=== PATIENT | male | born 1960 | race Caucasian/White ===

== ENCOUNTER → 2023-03-26 07:20 | Outpatient (REF) | payer BC, SELFPAY | LOC: MRI 3T 07:20 | PROVIDERS: ATTENDING PHYSICIAN Specialist; FAMILY PHYSICIAN Family Medicine | DX: R97.20 Elevated prostate specific antigen [PSA] (principal) | CPT/HCPCS: 72197; A9575 ==

== ENCOUNTER 2023-04-23 06:11 | Day surgery (SDC) | payer BC, SELFPAY ==
[2023-04-09 09:18] LABS: Hematocrit 46.7 % (39.0-52.0); Hemoglobin 16.4 g/dL (13.0-18.0); Mean Corp Hgb Conc. 35.1 g/dL (33.0-37.0); Mean Corpuscular Hgb 31.2 pg (27.0-31.0); Mean Platelet Volume 9.7 fL (7.4-10.4); Platelet Count 264 10^3/uL (130-400); Red Blood Cell Count 5.25 10^6/uL (4.70-6.10); Red Cell Dist. Width 13.2 % (11.5-14.5); White Blood Cell Count 4.5 10^3/uL (4.8-10.8)
[2023-04-09 09:18] LABS: Urine Albumin Negative (Neg - Trace); Urine Bilirubin Negative (Negative); Urine Character Clear (Clear); Urine Color Yellow; Urine Glucose Negative (Negative); Urine Ketone Negative (Negative); Urine Leukocyte Negative (Negative); Urine Nitrite Negative (Negative); Urine Occult Blood 2+ (Negative); Urine Specific Gravity 1.025 (<1.030); Urine Urobilinogen Negative (Neg - 1+)
[2023-04-09 09:46] LABS: INR 0.98
[2023-04-09 09:47] LABS: APTT 26.9 Sec (23.4-35.0)
[2023-04-09 10:00] LABS: Blood Urea Nitrogen 24 mg/dl (9-20); Calcium 9.4 mg/dl (8.4-10.2); Carbon Dioxide 27 mmol/L (22-30); Chloride 104 mmol/L (98-107); Glucose 104 mg/dl (70-99); Potassium 4.4 mmol/L (3.5-5.1); Sodium 136 mmol/L (135-145); eGFR > 60.00
[2023-04-09 10:15] LABS: Urine Red Blood Cell 0-2 /HPF (0-2); Urine White Cell 0-2 /HPF (0-5)
[2023-04-09 10:42] LABS: Urine Bacteria Few (Negative)
[2023-04-09 11:02] VITALS: BMI 30.8
[2023-04-23 06:17] VITALS: BP 144/79
[2023-04-23] MEDS: NORMOSOL-R 1000 IV (06:28)
[2023-04-23 06:34] VITALS: BMI 30.8
[2023-04-23 08:05] VITALS: BP 101/62; BP_SYST 19
[2023-04-23 08:20] VITALS: BP 95/58
[2023-04-23 08:34] VITALS: BP 113/64
[2023-04-23 09:05] VITALS: BP 127/80
== END 2023-04-23 09:15 | disposition home or self-care (01) ==
LOC: SDS 06:11
PROVIDERS: ATTENDING PHYSICIAN Specialist; FAMILY PHYSICIAN Family Medicine
DX: C61 Malignant neoplasm of prostate (principal); R97.20 Elevated prostate specific antigen [PSA]; R93.89 Abnormal findings on diagnostic imaging of other specified body structures
CPT/HCPCS: 55700; 88305; 36415; 76998; 80048; 81003; 81015; 85027; 85610; 85730; 88344; 93005; J1580

== ENCOUNTER → 2023-06-15 06:31 | Day surgery (SDC) | payer BC, SELFPAY | LOC: GI 06:31 | PROVIDERS: ATTENDING PHYSICIAN Internal Medicine | DX: Z12.11 Encounter for screening for malignant neoplasm of colon (principal); K57.30 Diverticulosis of large intestine without perforation or abscess without bleeding; D12.2 Benign neoplasm of ascending colon; D12.3 Benign neoplasm of transverse colon; D12.5 Benign neoplasm of sigmoid colon; D12.8 Benign neoplasm of rectum; N42.9 Disorder of prostate, unspecified; Z86.010 Personal history of colon polyps | CPT/HCPCS: 45385; 45380; 88305 ==

== ENCOUNTER 2023-09-10 09:18 | Inpatient (IN) | payer BC, SELFPAY ==
[2023-09-04 06:41] VITALS: BMI 30.1
[2023-09-04 09:05] LABS: Hematocrit 46.3 % (39.0-52.0); Hemoglobin 16.5 g/dL (13.0-18.0); Mean Corp Hgb Conc. 35.6 g/dL (33.0-37.0); Mean Corpuscular Hgb 31.3 pg (27.0-31.0); Mean Corpuscular Volume 87.9 fL (80.0-94.0); Mean Platelet Volume 9.3 fL (7.4-10.4); Platelet Count 262 10^3/uL (130-400); Red Blood Cell Count 5.27 10^6/uL (4.70-6.10); Red Cell Dist. Width 12.8 % (11.5-14.5)
[2023-09-04 09:24] LABS: INR 1.03; PT 13.3 Sec (11.4-14.6)
[2023-09-04 09:25] LABS: APTT 26.8 Sec (23.4-35.0); Urine Albumin Negative (Neg - Trace); Urine Bilirubin Negative (Negative); Urine Character Clear (Clear); Urine Color Yellow; Urine Glucose Negative (Negative); Urine Ketone Negative (Negative); Urine Leukocyte Negative (Negative); Urine Nitrite Negative (Negative); Urine Occult Blood 3+ (Negative); Urine Urobilinogen Negative (Neg - 1+)
[2023-09-04 09:32] LABS: Blood Urea Nitrogen 26 mg/dl (9-20); Calcium 9.6 mg/dl (8.4-10.2); Carbon Dioxide 27 mmol/L (22-30); Chloride 103 mmol/L (98-107); Estimated Creatinine Clearance 89 ml/min; Glucose 96 mg/dl (70-99); Potassium 4.6 mmol/L (3.5-5.1); Sodium 138 mmol/L (135-145); eGFR > 60.00
[2023-09-04 09:40] LABS: Urine Bacteria Few (Negative); Urine Squamous Cell 0-2 /LPF (Few); Urine White Cell 0-2 /HPF (0-5)
[2023-09-10] VITALS (7 sets, daily range): BP systolic 109–151; BP diastolic 60–90; BMI 30.1
[2023-09-10] MEDS: NEBCIN 480 MG/100 ML ENEMA 1 BOTTLE RECTAL (09:27)
[2023-09-10] MEDS: NORMOSOL-R 1000 IV ×3 (09:28→21:39)
--- NOTE | 2023-09-10 12:33 | W.IMMPOSTOP ---
Surgical Immed Post Op Note
-
Primary Surgeon: Raegan
Assisting Surgeon: Ricardo
Pre-op Diagnosis: Prostate cancer
Post-op Diagnosis: Same
Procedure Performed: Radical perineal prostatectomy, bladder neck reconstruction
Anesthesia Type: GET
Specimen / Cultures: prostate with seminal vesicles and vas deferens, bladder neck and urethral margin biopsy
Estimated Blood Loss: 100 ml
Complications: None
[2023-09-10] MEDS: DILAUDID 0.5 MG IV (12:57)
[2023-09-10] MEDS: COMPAZINE 5 MG IV (13:00)
[2023-09-10 13:12] LABS: Hematocrit 42.4 % (39.0-52.0); Hemoglobin 15.3 g/dL (13.0-18.0)
[2023-09-10 13:23] LABS: Blood Urea Nitrogen 16 mg/dl (9-20); Carbon Dioxide 26 mmol/L (22-30); Chloride 101 mmol/L (98-107); Estimated Creatinine Clearance 89 ml/min; Glucose 136 mg/dl (70-99); Potassium 4.3 mmol/L (3.5-5.1); Sodium 133 mmol/L (135-145); eGFR > 60.00
[2023-09-10 13:41] LABS: Calcium 8.6 mg/dl (8.4-10.2)
[2023-09-10] MEDS: TORADOL 15 MG IV ×2 (15:01→20:00)
[2023-09-10] MEDS: MORPHINE SULFATE 4 MG IV ×2 (15:01→20:01)
[2023-09-10] MEDS: COLACE 100 MG PO (15:02)
[2023-09-10] MEDS: POLYSPORIN OINTMENT 1 APPLIC TOPICAL (20:00)
[2023-09-10] MEDS: PLENDIL EXTENDED RELEASE 5 MG PO (21:19)
[2023-09-10] MEDS: LIPITOR 10 MG PO (21:19)
[2023-09-10] MEDS: ZESTRIL 10 MG PO (21:22)
[2023-09-11] MEDS: MORPHINE SULFATE 4 MG IV ×4 (00:01→19:43)
[2023-09-11] MEDS: TORADOL 15 MG IV ×4 (01:06→21:14)
[2023-09-11 03:01] VITALS: BP 122/74
[2023-09-11] MEDS: TYLENOL 650 MG PO ×2 (06:16→09:30)
[2023-09-11 06:46] LABS: Hematocrit 38.7 % (39.0-52.0); Hemoglobin 14.1 g/dL (13.0-18.0); Mean Corp Hgb Conc. 36.4 g/dL (33.0-37.0); Mean Corpuscular Hgb 31.9 pg (27.0-31.0); Mean Corpuscular Volume 87.6 fL (80.0-94.0); Mean Platelet Volume 9.4 fL (7.4-10.4); Platelet Count 210 10^3/uL (130-400); Red Blood Cell Count 4.42 10^6/uL (4.70-6.10); Red Cell Dist. Width 12.5 % (11.5-14.5); White Blood Cell Count 12.3 10^3/uL (4.8-10.8)
[2023-09-11 07:11] LABS: Blood Urea Nitrogen 17 mg/dl (9-20); Calcium 8.9 mg/dl (8.4-10.2); Carbon Dioxide 24 mmol/L (22-30); Chloride 101 mmol/L (98-107); Estimated Creatinine Clearance 100 ml/min; Glucose 123 mg/dl (70-99); Potassium 3.8 mmol/L (3.5-5.1); Sodium 133 mmol/L (135-145); eGFR > 60.00
[2023-09-11] MEDS: COLACE 100 MG PO ×3 (07:13→15:55)
[2023-09-11] MEDS: NORMOSOL-R 1000 IV ×2 (07:13→17:27)
[2023-09-11] MEDS: POLYSPORIN OINTMENT 1 APPLIC TOPICAL ×2 (07:13→19:44)
[2023-09-11 07:27] VITALS: BP 143/73
--- NOTE | 2023-09-11 09:27 | W.PN.URO.CBU ---
Today's Communication / Plan
-
Home tomorrow if remains stable today
Increase activity
Jacinta drain removed w/o event
Assessment / Plan
-
Stable 1 day s/p radical perineal prostatectomy
Diagnosis
-
Date of Service: September 11, 2023
-
Patient Diagnosis:
Prostate cancer
s/p radical perineal prostatectomy
Subjective
-
Feels well
Little catheter bother
Objective
-
Vital Signs
Temp Pulse Resp BP Pulse Ox
98.7 F 83 18 143/73 97
09/11/23 07:27 09/11/23 07:27 09/11/23 07:27 09/11/23 07:27 09/11/23 07:27
Intake and Output
09/10/23 09/11/23 09/12/23
06:59 06:59 06:59
Intake Total 600 / 600
Output Total 1725 / 1725
Balance -1125 / -1125
Intake:
Oral fluids 600 / 600
Output:
Urine, Lazar 1725 / 1725
Laboratory Results
09/11/23 05:56
09/11/23 05:56
Review of Systems
-
Constitutional: No Symptoms
Respiratory: No Symptoms
Abdomen/GI: No Symptoms
Neurological: No Symptoms
Physical Exam
-
General - well developed, well nourished, no acute distress
Abdomen - soft, non-tender
Genitalia - normal with Lazar draining nirmal urine
Incision - clean, dry
[2023-09-11] MEDS: LEVAQUIN 100 IV (09:29)
[2023-09-11] MEDS: PERCOCET 5/325 1 TABLET PO (09:29)
[2023-09-11 11:30] VITALS: BP 126/65
--- NOTE | 2023-09-11 11:50 | CM ---
Initial assessment completed with patient who lives with his and 4 children, ages 16-19, in a 2 story home with basement and attic, B/B are on 2nd with 1/2 bath on 1st, 2 steps to enter. Family has set up 1st floor accommodations for after
discharge. No DME or in-home services. 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 No history of Psychiatric hospitalizations. Pharmacy is [facility] in [place] and PCP is Dr. Anand Pruett. Will need VN for maki and wound care. Patient
preference is . Liaison notified via TT.
[2023-09-11 15:34] VITALS: BP 130/67
[2023-09-11] MEDS: LIPITOR 10 MG PO (21:12)
[2023-09-11] MEDS: PLENDIL EXTENDED RELEASE 5 MG PO (21:13)
[2023-09-11] MEDS: ZESTRIL 10 MG PO (21:14)
[2023-09-11 23:00] VITALS: BP 129/67
[2023-09-12] MEDS: TYLENOL 650 MG PO ×3 (02:14→11:27)
[2023-09-12] MEDS: COLACE 100 MG PO ×2 (07:41→11:29)
[2023-09-12] MEDS: POLYSPORIN OINTMENT 1 APPLIC TOPICAL (07:41)
[2023-09-12 07:56] VITALS: BP 135/70
[2023-09-12] MEDS: VALIUM INJECTION 5 MG IV (09:59)
[2023-09-12] MEDS: LEVAQUIN 100 IV (09:59)
--- NOTE | 2023-09-12 11:04 | W.PN.URO.CBU ---
Today's Communication / Plan
-
Discharge
Assessment / Plan
-
Stable 2 days s/p radical perineal prostatectomy
PO pain control
Discussed adding anticholinergic but patient does not want anything else that can be constipated
Discharge planning - home today if comfortable and spasms controlled
Diagnosis
-
Date of Service: September 12, 2023
-
Patient Diagnosis:
Prostate cancer
s/p radical perineal prostatectomy
Subjective
-
Some bladder spasms and pain overnight
better with valium this AM
ambulated
no BM yet
Objective
-
Vital Signs
Temp Pulse Resp BP Pulse Ox
98.8 F 62 16 135/70 96
09/12/23 07:56 09/12/23 07:56 09/12/23 07:56 09/12/23 07:56 09/12/23 07:56
Intake and Output
09/11/23 09/12/23 09/13/23
06:59 06:59 06:59
Intake Total 600 / 600 2670 / 2670
Output Total 1725 / 1725 3800 / 3800
Balance -1125 / -1125 -1130 / -1130
Intake:
Oral fluids 600 / 600 1920 / 1920
IV fluids (Total) 750 / 750
Output:
Urine, Lazar 1725 / 1725 3800 / 3800
Laboratory Results
09/11/23 05:56
09/11/23 05:56
Physical Exam
-
General - well developed, well nourished, no acute distress
Chest - clear bilaterally
Abdomen - soft, non-tender
Lazar in place, clear urine
Skin - warm & dry with no rash
Neuro - AOx3, no motor deficits
Extremities - no clubbing, no cyanosis, no edema
Incision - clean, dry. Jacinta removed
Dressing - clean, dry, intact
[2023-09-12] MEDS: TORADOL 15 MG IV (11:27)
--- NOTE | 2023-09-12 11:36 | CM ---
Patient has been medically cleared for discharge to home with [facility] for maki and wound care. Patient has arranged for transport home.
[2023-09-12 12:44] VITALS: BP 131/69
--- NOTE | 2023-09-14 09:45 | W.DS.TRANS ---
DC Summary - Data Report Analyst
-
Discharge Instructions:
Sleep Apnea Risk High
Discharge Diagnosis/Procedures Prostate cancer
Diet No restrictions
Activity No strenuous activity
Additional Activity for 10 days
Driving Restrictions No driving for 1 week
Bathing Restrictions Shower off after each bowel movement the next 5
da
Other Services VN
Wound Care Wound and Lazar care. VN to remove Lazar around
9:30 am September 24, 2023
Instructions:
Stand-Alone Forms:
Changes to Home Medications: No
Discharge Medications:
DC Medications w/original date entered in [facility]
felodipine 5 mg tablet,extended release 24 hr 5 mg PO HS Blood Pressure 12/02/22
ibuprofen 200 mg capsule 400 mg PO DAILY PRN mild pain 12/02/22
lisinopril 10 mg tablet 10 mg PO HS Blood Pressure 12/02/22
simvastatin 20 mg tablet 20 mg PO HS High Cholesterol 12/02/22
tadalafil 5 mg tablet (Cialis) 2.5 - 5 mg PO HS Blood Pressure 04/20/23
oxycodone-acetaminophen 5 mg-325 mg tablet (Endocet) 1 tab PO Q6H PRN severe pain #7 tabs 09/12/23
Home Medication Changes
Pending Results: No
== END 2023-09-12 13:13 | disposition home health service (06) | DRG 708 ==
LOC: 2 SOUTH 09:18
PROVIDERS: ADMITTING PHYSICIAN Specialist; FAMILY PHYSICIAN Family Medicine
PROC: 0VT00ZZ Resection of Prostate, Open Approach (ICD-10-PCS; 2023-09-10)
PROC: 0TUD07Z Supplement Urethra with Autologous Tissue Substitute, Open Approach (ICD-10-PCS; 2023-09-10)
DX: C61 Malignant neoplasm of prostate (principal); I10 Essential (primary) hypertension
CPT/HCPCS: 88305; 88309; 36415; 80048; 81003; 81015; 85014; 85018; 85027; 85610; 85730; 86850; 86900; 86901; 93005; A4648

== ENCOUNTER → 2024-07-27 13:43 | Outpatient (REF) | payer BC, SELFPAY | LOC: HWRAD 13:43 | PROVIDERS: ATTENDING PHYSICIAN Family Medicine; REFERRING PHYSICIAN Orthopaedic Surgery Adult Reconstructive Orthopaedic Surgery | DX: M25.551 Pain in right hip (principal) | CPT/HCPCS: 73522 ==